=== PATIENT | male | born 1980 | race Caucasian/White ===

== ENCOUNTER 2018-07-15 14:21 | Emergency (ER) | payer SELFPAY ==
[~2018-07-15] VITALS: Ht 177.8 cm; Wt 113.0 kg
[2018-07-15] MEDS ORDERED: HYDROCODONE/ACETAMINOPHEN 5/325MG TABLET PO ONE (17:30)
[2018-07-15] MEDS ORDERED: IBUPROFEN 600MG TABLET PO ONE (22:00)
[2018-07-15 22:31] VITALS: BP 129/81
== END 2018-07-15 22:31 | disposition home or self-care (01) ==
LOC: ER 14:21
DX: S93.601A Unspecified sprain of right foot, initial encounter (principal); W31.89XA Contact with other specified machinery, initial encounter; Y93.89 Activity, other specified; Y92.89 Other specified places as the place of occurrence of the external cause; Y99.8 Other external cause status
CPT/HCPCS: 73590; 73610; 73630; 93971; 99284